=== PATIENT | male | born 1945 | race Caucasian/White ===

== ENCOUNTER 2024-11-11 22:53 | Outpatient (REF) | payer BC, SELFPAY ==
[2024-11-11 21:47] LABS: Abs Immature Grans 0.01 10^3/uL (0.0-0.06); Absolute Basophil Count 0.04 10^3/uL (0.0-0.2); Absolute Lymphocyte Count 0.89 10^3/uL (1.2-3.4); Absolute Monocyte Count 0.41 10^3/uL (0.1-0.8); Absolute Neutrophil Count 2.68 10^3/uL (1.2-6.7); Basophils % 0.9 %; Eosinophils % 4.7 %; HCT 38.4 % (40.0-50.0); HGB 13.8 g/dL (13.5-17.5); Immature Grans % 0.2 %; Lymphocytes % 21.1 %; MCHC 35.9 % (32.0-36.0); MCV 103 fL (80-95); MPV 9.7 fL (8.0-11.0); Monocytes % 9.7 %; Neutrophils % 63.4 %; Platelet Count 183 10^3/uL (130-400); RBC 3.73 10^6/uL (4.36-5.78); RDW 13.3 % (11.8-14.1); RDW-SD 49.8 fL; WBC 4.22 10^3/uL (4.4-10.8)
[2024-11-11 21:58] LABS: ALT 36 U/L (16-63); AST 27 U/L (15-37); Albumin 4.1 g/dL (3.4-5.0); Alkaline Phosphatase 103 U/L (46-116); Anion Gap 8.6 mmol/L (3-11); BUN 24 mg/dL (7-18); Bilirubin, Total 0.8 mg/dL (0.2-1.0); CO2 28.4 mmol/L (21.0-32.0); CREATININE 0.9 mg/dL (0.70-1.30); Calcium 9.2 mg/dL (8.5-10.1); Chloride 104 mmol/L (98-107); Estimated GFR 87.42 (mL/min/1.73m2); Glucose 91 mg/dL (74-106); Potassium 4.3 mmol/L (3.5-5.1); Sodium 141 mmol/L (136-145); Total Protein 6.8 g/dL (6.4-8.2)
[2024-11-14 12:26] LABS: Measles IgG Antibody Positive (See Note); Rubella IgG Ab (UVM) Negative (See Note)
== END 2024-11-11 22:54 | disposition home or self-care (01) ==
LOC: LBN 22:53
PROVIDERS: PCP Family Medicine; Visit Provider Physician Assistant Medical
DX: R03.0 Elevated blood-pressure reading, without diagnosis of hypertension (principal); Z11.59 Encounter for screening for other viral diseases
CPT/HCPCS: 80053; 85025; 86762; 86765